=== PATIENT | female | born 1990 | race Caucasian/White ===

== ENCOUNTER 2018-10-12 10:57 | Emergency (ER) | payer OTHER ==
[~2018-10-12] VITALS: Ht 165.1 cm; Wt 61.2 kg
[2018-10-12] MEDS ORDERED: ZITHROMAX500 MG PO (14:29)
[2018-10-12] MEDS ORDERED: SYMBICORT 16010.2 GM IH (14:29)
[2018-10-12] MEDS ORDERED: MEDROLPACK PO (14:29)
== END 2018-10-12 14:59 | disposition home or self-care (01) ==
LOC: ER 10:57
DX: H66.91 Otitis media, unspecified, right ear (principal)